=== PATIENT | female | born 1960 | race African-American/Black ===

== ENCOUNTER 2019-05-19 20:40 | Inpatient (IN) | payer MEDICARE ==
[2019-05-19] MEDS ORDERED: methylPREDNISolone Sod Succ/PF 125 MG/2 ML VIAL ONE (21:06)
[2019-05-19 21:13] LABS: #Eosinphils 0.1 thou/uL (0.0-0.7); #Monocytes 0.4 thou/uL (0.11-0.59); #Neutrophils 10.4 thou/uL (1.40-6.50); %Basophils 0.2 % (0.0-1.0); %Eosinophils 0.6 % (0.0-10.0); %Lymphocytes 8.5 % (21.0-51.0); %Monocytes 3.1 % (0.0-10.0); %Neutrophils 87.6 % (42.0-75.0); Hemoglobin 11.6 g/dL (12.0-16.0); Mean Corpuscular HGB CONC 31.9 g/dL (32.0-36.0); Mean Corpuscular Hemoglobin 26.7 pg (27.0-31.0); Mean Corpuscular Volume 83.5 fL (78.0-98.0); Mean Platelet Volume 8.6 fL (7.4-10.4); Platelet Count 170 thou/uL (130-400); RBC Distribution Width 12.3 % (11.5-14.5); Red Blood Cell (RBC) Count 4.34 mill/uL (4.20-5.40); White Blood Cell (WBC) Count 11.9 thou/uL (4.8-10.8)
[2019-05-19 21:36] LABS: ALT (SGPT) 7 U/L (8-55); AST (SGOT) 13 U/L (5-34); Albumin 3.9 g/dL (3.5-5.0); Alkaline Phosphatase 75 U/L (40-150); Anion Gap 16 mmol/L (10-20); BUN (Urea Nitrogen) 8 mg/dL (9.8-20.1); Bilirubin, Total 0.3 mg/dL (0.2-1.2); Calc. Creatinine Clearance 0 mL/min (70-130); Calcium 9.4 mg/dL (7.8-10.44); Carbon Dioxide 21 mmol/L (22-29); Chloride 104 mmol/L (98-107); Estimated GFR-MDRD 59; Globulin 3.8 g/dL (2.4-3.5); Glucose 255 mg/dL (70-105); Potassium 3.8 mmol/L (3.5-5.1); Protein, Total 7.7 g/dL (6.0-8.3); Sodium 137 mmol/L (136-145)
[2019-05-19] MEDS ORDERED: Magnesium 2 GM/50 ML BAG (IN WATER) ONE (21:50)
[2019-05-19] MEDS ORDERED: Loratadine 10 MG TAB PO PRN (21:57)
[2019-05-19] MEDS ORDERED: Sodium Chloride 0.65% Nasal 44 ML BOT EA NARE PRN (21:57)
[2019-05-19] MEDS ORDERED: Senokot S 8.6-50 MG TAB PO PRN ×2 (21:57)
[2019-05-19] MEDS ORDERED: hydrALAZINE 20 MG/ML VIAL SLOW IVP PRN (21:57)
[2019-05-19] MEDS ORDERED: cloNIDine 0.1 MG TAB PO PRN (21:57)
[2019-05-19] MEDS ORDERED: Bisacodyl 5 MG TAB PO PRN ×2 (21:57)
[2019-05-19] MEDS ORDERED: Ondansetron PF 4 MG/2 ML Vial IVP PRN (21:57)
[2019-05-19] MEDS ORDERED: Nitroglycerin 0.4 MG TAB (25 Tab Bottle) SL PRN (21:57)
[2019-05-19] MEDS ORDERED: Acetaminophen 325 MG TAB PO PRN (21:57)
--- NOTE | 2019-05-19 21:57 | RAD ---
FRONTAL RADIOGRAPH CHEST: 05/19/2019 HISTORY: Short of breath. COMPARISON: 05/17/2019 FINDINGS: There is stable atherosclerotic calcification in the aortic arch. Stable heart and mediastinal conto urs. No pneumothorax, pleural fluid, focal consolidation, or alveolar edema. IMPRESSION: No acute findings. POS: OFF
[2019-05-19] MEDS ORDERED: Mometasone/Formoterol 120 PUFF INHALER INH SCH (22:30)
[2019-05-19] MEDS ORDERED: Sodium Chloride 0.9% 1,000 ML IV SCH (22:40)
[2019-05-20] MEDS ORDERED: Potassium Chloride 20 MEQ TAB PO SCH (00:15)
[2019-05-20] MEDS: Benzonatate 100 MG CAP PO PRN ×3 (00:42→21:43)
[2019-05-20] MEDS: Diabetic Tussin 200 MG/10 ML UDCUP PO PRN ×2 (00:42→19:31)
[2019-05-20] MEDS: methylPREDNISolone Sod Succ 40 MG VIAL IVP SCH ×3 (00:42→11:40)
--- NOTE | 2019-05-20 01:15 | HP ---
The patient was seen prior to midnight. PRIMARY CARE PHYSICIAN: [facility] CHIEF COMPLAINT: Shortness of breath. HISTORY OF PRESENTING ILLNESS: Ms. Valerio is a 58-year-old pleasant female with past medical history of DVT, congestive heart failure as per the history, diabetes, asthma versus COPD and chronic lower extremity swelling, who presented to the emergency room with the above-mentioned problems. History is mainly obtained by the patient herself and electronic medical records have been reviewed. Case has been discussed with admitting ER physician, Dr. Mcqueen. Ms. Valerio reports that she has been feeling fine up until the last few days when she has been noticing some shortness of breath easily and wheezing. It got really worse today when she was not able to get any relief despite using her inhalers, nebulizers, and changes in position. She normally gets into the tripod position and gets relief whenever her symptoms are this bad, but today nothing would help except just standing up. She came to the ER 2 days ago with these symptoms and was discharged with steroids. Her symptoms unfortunately got worse this morning and she had to call EMS. Upon presentation of the EMS, she was tripoding and was noticed to have retraction of her pulmonary accessory muscles and she was wheezing. She received nebulizers and was placed on BiPAP and was brought to the ER. She was weaned off BiPAP in the ER and received more nebulizers and magnesium sulfate as well as Lasix. She reports that she takes daily dose of Lasix 40 mg twice a day for her chronic lower extremity swelling. She does not feel that her swelling is any worse in the last few days. She otherwise also reports some chest discomfort and chest tightness, which has since been improved since she presented to the ER. She denies any sick contacts, but has been having some mild cough. Denies any fever or chills. No recent travel either. She is now being admitted to telemetry unit for acute asthma exacerbation. PAST MEDICAL HISTORY: 1. History of bronchial asthma. 2. History of DVT in the past. 3. Anemia. 4. Gastroesophageal reflux disease. 5. Hypertension. 6. Pancreatitis in 2008. PAST SURGICAL HISTORY: 1. Left ankle surgery. 2. section. 3. ERCP. ALLERGIES: NO KNOWN MEDICATION ALLERGIES. SOCIAL HISTORY: No history of drug, tobacco, or alcohol abuse. FAMILY HISTORY: Hypertension, diabetes in her family as well as father had prostate cancer. ALLERGIES: NO KNOWN MEDICATION ALLERGIES. HOME MEDICATIONS: As listed in the ER records, 1. Aspirin unknown dose. 2. Symbicort b.i.d. 3. Potassium chloride 20 mEq daily. 4. Lisinopril 20 mg daily. 5. Flonase 2 puffs b.i.d. 6. Cetirizine daily. 7. Albuterol nebulizer t.i.d. p.r.n. REVIEW OF SYSTEMS: A 14-point review of system is done and is negative except for those mentioned in the history and physical. LABORATORY DATA: CBC shows WBCs 11.9 with 87% neutrophils. Serum chemistry shows BUN 8, creatinine 1.14, blood sugar 255. BNP normal at 14.2. Chest x-ray by my review shows no evidence of pleural effusion, edema, or infiltrate. A 12-lead EKG by my review shows sinus tachycardia without any acute ST or T-wave changes. PHYSICAL EXAMINATION: VITAL SIGNS: Most recent vital signs; heart rate anywhere from 111 to 117, temperature 98.5, respirations anywhere from 20 to 22, saturating 96% on room air, blood pressure 124/64. GENERAL: No acute distress. She is able to talk in full sentences and talks a lot without having to stop her breath, but she gets easily winded. Otherwise, appears to be in good spirits. HEENT: Mucous membrane is moist and pink. No oropharyngeal exudate or erythema. Head is normocephalic and atraumatic. Pupils are equal and reactive to light and accommodation. Extraocular movement intact. NECK: Supple without any lymphadenopathy, JVD, or bruit. CHEST: Evaluation shows decreased breath sounds bilaterally without any audible wheezing, crackles, or rales. She has tachycardic rate, but is regular in rhythm. No audible murmurs. ABDOMEN: Morbidly obese, soft, nontender, nondistended with positive bowel sounds. EXTREMITIES: Show extensive swelling of her left ankle and extending upward, which is chronic for her and suggestive of chronic lymphedema. She has mild pitting edema in the right lower extremity, which also seems to be chronic as per her description. NEUROLOGICAL: Nonfocal. SKIN: Free of any rashes or bruises. Feels warm and dry to touch. PSYCHIATRIC: Normal affect. IMPRESSION AND PLAN: 1. Acute respiratory distress due to acute asthma exacerbation. The patient is neither hypoxic or hypercarbic though ABGs were not done. She is doing much better and has been weaned off BiPAP. She uses CPAP at night, which we will order. We will meanwhile also continue IV steroids and around the clock nebulizers as well as empiric antibiotics. She does not seem to have any evidence of pneumonia or any cardiac causes at this time. There is some question of congestive heart failure listed in her medical records, so we will go ahead and obtain a transthoracic echocardiogram. She will be continued on her Lasix though her chest x-ray does not suggest pulmonary edema. We will consult Pulmonary Medicine in the outpatient settings. Her symptoms are under much better control for now. 2. Type 2 diabetes mellitus. We will use insulin sliding scale with Accu-Cheks before meals and at bedtime. 3. Hypertension. Restart her lisinopril. 4. Chronic lymphedema and chronic venous stasis edema. We will restart her Lasix and potassium chloride for now. 5. Morbid obesity and obstructive sleep apnea. We will start her on CPAP while in the hospital at home setting. 6. Deep venous thrombosis and gastrointestinal prophylaxis. DISPOSITION: Ms. Valerio is currently being admitted to telemetry unit for acute asthma exacerbation causing respiratory distress without hypoxia or hypercapnia. Her symptoms are much improved. Estimated length of stay at this time is at least 2 to 3 midnights. Job ID: [id number]
[2019-05-20 05:26] LABS: #Lymphocytes 0.7 thou/uL (1.20-3.40); #Monocytes 0.1 thou/uL (0.11-0.59); #Neutrophils 8.6 thou/uL (1.40-6.50); %Basophils 0.2 % (0.0-1.0); %Eosinophils 0.3 % (0.0-10.0); %Lymphocytes 7.4 % (21.0-51.0); %Monocytes 1.5 % (0.0-10.0); %Neutrophils 90.6 % (42.0-75.0); Hemoglobin 10.9 g/dL (12.0-16.0); Mean Corpuscular HGB CONC 32.2 g/dL (32.0-36.0); Mean Corpuscular Hemoglobin 27.2 pg (27.0-31.0); Mean Corpuscular Volume 84.4 fL (78.0-98.0); Mean Platelet Volume 8.5 fL (7.4-10.4); Platelet Count 163 thou/uL (130-400); RBC Distribution Width 12.4 % (11.5-14.5); Red Blood Cell (RBC) Count 4.03 mill/uL (4.20-5.40); White Blood Cell (WBC) Count 9.5 thou/uL (4.8-10.8)
[2019-05-20 05:47] LABS: Anion Gap 21 mmol/L (10-20); BUN (Urea Nitrogen) 10 mg/dL (9.8-20.1); Calc. Creatinine Clearance 93 mL/min (70-130); Calcium 9.3 mg/dL (7.8-10.44); Carbon Dioxide 16 mmol/L (22-29); Chloride 103 mmol/L (98-107); Estimated GFR-MDRD 55; Glucose 305 mg/dL (70-105); Potassium 4.7 mmol/L (3.5-5.1); Sodium 135 mmol/L (136-145)
[2019-05-20] MEDS ORDERED: Dextrose 5% in Water 1,000 ML IV PRN (06:56)
[2019-05-20] MEDS ORDERED: Dextrose 50% Abboject 50 ML SYRINGE IVP PRN (06:56)
[2019-05-20] MEDS: Mometasone/Formoterol 120 PUFF INHALER INH SCH ×2 (07:05→19:07)
[2019-05-20 07:20] LABS: Hemoglobin A1c 8.2 % (4.0-6.0)
[2019-05-20] MEDS: Aspirin 81 mg Enteric Coated Tablet PO SCH (08:58)
[2019-05-20] MEDS: Lisinopril 20 MG TAB PO SCH (08:58)
[2019-05-20] MEDS: Famotidine 20 MG TAB PO SCH ×2 (08:58→19:32)
[2019-05-20] MEDS: Enoxaparin Sodium 40 MG/0.4 ML SYRINGE SC SCH (08:58)
[2019-05-20] MEDS: Potassium Chloride 20 MEQ TAB PO SCH (08:58)
[2019-05-20] MEDS: HumaLOG 300 UNITS/3 ML VIAL SC PRN ×3 (08:59→17:12)
[2019-05-20] MEDS ORDERED: Furosemide 40 MG TAB PO SCH ×2 (09:00→16:30)
[2019-05-20] MEDS: Loratadine 10 MG TAB PO SCH (09:03)
[2019-05-20] MEDS: Fluticasone Propionate Nasal Spray 16 gm Bottle NASAL SCH ×2 (09:10→22:21)
[2019-05-20 14:47] VITALS: BMI 52.3
[2019-05-20] MEDS ORDERED: HumaLOG 300 UNITS/3 ML VIAL SC PRN (16:13)
[2019-05-20] MEDS ORDERED: Diabetic Tussin 200 MG/10 ML UDCUP PO PRN (16:17)
[2019-05-20] MEDS ORDERED: Azithromycin 250 MG TAB PO SCH (16:30)
[2019-05-20] MEDS: predniSONE 20 MG TAB PO SCH (16:43)
[2019-05-20] MEDS: metFORMIN 500 MG TAB PO SCH (16:43)
[2019-05-20] MEDS: glipiZIDE 5 MG TAB PO SCH (16:43)
[2019-05-20] MEDS: Cefdinir 300 MG CAP PO SCH (19:31)
[2019-05-20] MEDS: guaiFENesin ER 600 MG TAB PO SCH (19:31)
[2019-05-21] MEDS: Mometasone/Formoterol 120 PUFF INHALER INH SCH (06:35)
[2019-05-21 07:12] LABS: Anion Gap 9 mmol/L (10-20); BUN (Urea Nitrogen) 18 mg/dL (9.8-20.1); Calc. Creatinine Clearance 93 mL/min (70-130); Calcium 9.9 mg/dL (7.8-10.44); Carbon Dioxide 28 mmol/L (22-29); Chloride 103 mmol/L (98-107); Estimated GFR-MDRD 54; Glucose 231 mg/dL (70-105); Magnesium 2.6 mg/dL (1.6-2.6); Potassium 4.2 mmol/L (3.5-5.1); Sodium 136 mmol/L (136-145)
[2019-05-21] MEDS: metFORMIN 500 MG TAB PO SCH (08:28)
[2019-05-21] MEDS: Cefdinir 300 MG CAP PO SCH (08:28)
[2019-05-21] MEDS: glipiZIDE 5 MG TAB PO SCH (08:28)
[2019-05-21] MEDS: Famotidine 20 MG TAB PO SCH (08:28)
[2019-05-21] MEDS: predniSONE 20 MG TAB PO SCH (08:28)
[2019-05-21] MEDS: Aspirin 81 mg Enteric Coated Tablet PO SCH (08:28)
[2019-05-21] MEDS: guaiFENesin ER 600 MG TAB PO SCH (08:29)
[2019-05-21] MEDS: Potassium Chloride 20 MEQ TAB PO SCH (08:29)
[2019-05-21] MEDS: Lisinopril 20 MG TAB PO SCH (08:29)
[2019-05-21] MEDS: Enoxaparin Sodium 40 MG/0.4 ML SYRINGE SC SCH (08:29)
[2019-05-21] MEDS: Loratadine 10 MG TAB PO SCH (08:29)
[2019-05-21] MEDS: HumaLOG 300 UNITS/3 ML VIAL SC PRN (08:30)
[2019-05-21] MEDS: Fluticasone Propionate Nasal Spray 16 gm Bottle NASAL SCH (08:30)
[2019-05-21] MEDS ORDERED: Azithromycin 250 MG TAB PO SCH (09:00)
[2019-05-21] MEDS ORDERED: Furosemide 40 MG TAB PO SCH (09:00)
[2019-05-21] MEDS ORDERED: Saccharomyces boulardii 250 MG CAP PO SCH (09:00)
--- NOTE | 2019-05-21 11:16 | PQF ---
CLINICAL DOCUMENTATION IMPROVEMENT CLARIFICATION FORM: ICD-10 Updated PLEASE DO AN ADDENDUM TO THE PROGRESS NOTE WITH ANY DOCUMENTATION UPDATES OR ADDITIONS AND CARRY THROUGH TO DC SUMMARY. THANK YOU. DATE: 05/21/19 ATTN: DR. FELICIANO Please exercise your independent, professional judgment in responding to the clarification form. Clinical indicators are provided on the bottom of this form for your review Please check appropriate box(s): [ x ] Acute Respiratory Failure: [ x ] with Hypoxia[ ] with Hypercapnia [ ] Acute On Chronic Respiratory Failure: [ ] with Hypoxia [ ] with Hypercapnia [ ] Acute Respiratory Failure due to: (etiology) [ ] ARDS (Acute Respiratory Distress Syndrome) [ ] Chronic Respiratory Failure only [ ] with Hypoxia [ ] with Hypercapnia [ ] Hypoxia [ ] Other diagnosis [ ] Unable to determine In addition, please specify: Present on Admission (POA): [x ] Yes [ ] No [ ] Unable to determine For continuity of documentation, please document condition throughout progress notes and discharge summary. Thank You. CLINICAL INDICATORS - SIGNS / SYMPTOMS / LABS ER NOTE: "WHEN THEY ARRIVED SHE WAS IN TRIPOD POSITION, RETRACTING AND WHEEZING. " "SPEAKING IN SHORT SENTENCES" PULSE 133 RR 24 RISKS: ASTHMA EXACERBATION COPD MORBID OBESITY CHF TREATMENT: NEBS (EMS-PRESENT) BIPAP (EMS) LASIX (05/21) PREDNISONE (05/20-PRESENT) DULERA (05/20-PRESENT) CARDIAC MONITORING SAP [employer](This form is maintained as a part of the permanent medical record) 2014 [employer]. All Rights Reserved ALEJO [email or web address]: [phone] SONYA
[2019-05-21 11:27] VITALS: BP 134/69; TEMP 97.8
--- NOTE | 2019-05-21 12:58 | DIS ---
DATE OF ADMISSION: 05/19/2019 DATE OF DISCHARGE: 05/21/2019 DISCHARGE DISPOSITION: Home. FOLLOWUP: Follow up with primary care physician, Dr. Juan Malloy, in 1 week. ALLERGIES: NO KNOWN DRUG ALLERGIES. DISCHARGE MEDICATIONS: 1. Azithromycin 250 mg daily for next 3 days. 2. Prednisone taper. 3. Pepcid 20 mg twice a day while on prednisone. 4. All other home medications. Home medications were left unchanged. The patient was seen and examined on the day of discharge. Denies any new complaints. No chest pain, shortness of breath, or palpitations reported. BRIEF HOSPITAL COURSE: The patient is a 58-year-old female with asthma with questionable COPD, presented to the emergency room on April,, with shortness of breath and wheezing. She was seen recently in the emergency room and was discharged on steroids. One hour prior to calling the EMS, her symptoms got worse. She was in tripod position, retracting, wheezing. She was placed on noninvasive positive pressure ventilation. She was subsequently brought to the emergency room. There was no fever or chills reported. Her O2 saturation improved when she came into the emergency room after a short treatment with BiPAP. Please refer to the history and physical for further details. The patient was admitted to the hospital with a diagnosis of acute hypoxic respiratory failure secondary to asthma/questionable COPD exacerbation. She was monitored on the telemetry floor due to significant tachycardia. She received nebulization treatment every 4 hours. A chest x-ray was negative for infiltrate. Her symptoms gradually improved. Steroids were later changed to oral. Antibiotics were also changed to p.o. next day. An echocardiogram was performed that showed ejection fraction 55% to 60% with [id number] mitral regurgitation, mild tricuspid regurgitation. She appears stable for discharge. She was advised to contact primary care physician or come to the emergency room if she develops new shortness of breath. SIGNIFICANT LABORATORY DATA: Hemoglobin A1c 8.2. Creatinine 1.22 with BUN 10. FINAL DIAGNOSES: 1. Acute hypoxic respiratory failure secondary to asthma exacerbation/questionable chronic obstructive pulmonary disease exacerbation. 2. Hypertension. 3. Morbid obesity with a BMI of 52.4. 4. Gastroesophageal reflux disease. 5. Chronic anemia. 6. History of deep vein thrombosis in the past. 7. Chronic kidney disease, stage 3. 8. Chronic anemia. 9. Chronic lymphedema. 10. Chronic venous stasis. 11. The patient will follow up with [facility], Dr. Juan Malloy in 1 week. 12. She was also advised to follow up with a primary tree driller at [facility]. 13. Plan was discussed with the patient in detail. She stated understanding. Job ID: [id number]
== END 2019-05-21 12:02 | disposition home or self-care (01) | DRG 189 ==
LOC: ERS 20:40 → 2SW 22:31 → OBSVTOIN 22:31 → 2NO 23:00
PROVIDERS: ADMIT Internal Medicine; ATTEND Internal Medicine
PROC: 5A09357 Assistance with Respiratory Ventilation, Less than 24 Consecutive Hours, Continuous Positive Airway Pressure (ICD-10-PCS; principal; 2019-05-19)
DX: J96.01 Acute respiratory failure with hypoxia (principal); J44.1 Chronic obstructive pulmonary disease with (acute) exacerbation; J45.901 Unspecified asthma with (acute) exacerbation; Z68.43 Body mass index [BMI] 50.0-59.9, adult; I08.1 Rheumatic disorders of both mitral and tricuspid valves; E66.01 Morbid (severe) obesity due to excess calories; K21.9 Gastro-esophageal reflux disease without esophagitis; D63.1 Anemia in chronic kidney disease; I12.9 Hypertensive chronic kidney disease with stage 1 through stage 4 chronic kidney disease, or unspecified chronic kidney disease; N18.3 Chronic kidney disease, stage 3 (moderate); G47.33 Obstructive sleep apnea (adult) (pediatric); I87.8 Other specified disorders of veins; Z79.82 Long term (current) use of aspirin; Z79.51 Long term (current) use of inhaled steroids; Z79.52 Long term (current) use of systemic steroids; Z79.899 Other long term (current) drug therapy; Z86.718 Personal history of other venous thrombosis and embolism
CPT/HCPCS: 36415; 36416; 71045; 80048; 80053; 83036; 83735; 83880; 85025; 90471; 90732; 93005; 93306; 94640; 94660; 96374; 96375; G0009; J1650; J1956; J2405; J2920; J2930; J3475; J7512; J7620

== ENCOUNTER 2020-10-27 14:14 | Emergency (ER) | payer MEDICARE ==
--- NOTE | 2020-10-27 15:55 | ULT ---
Venous duplex sonogram left lower extremity HISTORY: Left leg pain and edema. FINDINGS: The left common femoral vein and greater saphenous junction were evaluated along with the f emoral, deep femoral, popliteal, and posterior tibial vein. There is good color and spectral Doppler flow, compression, and augmentation. IMPRESSION : Normal exam.
== END 2020-10-27 17:18 | disposition home or self-care (01) ==
LOC: ERS 14:14
DX: L03.116 Cellulitis of left lower limb (principal); I50.9 Heart failure, unspecified; E11.9 Type 2 diabetes mellitus without complications; J44.9 Chronic obstructive pulmonary disease, unspecified; Z79.899 Other long term (current) drug therapy
CPT/HCPCS: 36416

== ENCOUNTER 2020-12-24 14:31 | Observation (INO) | payer MEDICARE ==
[2020-12-24] MEDS ORDERED: Ondansetron PF 4 MG/2 ML Vial ONE (15:18)
[2020-12-24] MEDS ORDERED: Piperacillin/Tazobactam 3.375 GM VIAL ONE (15:18)
[2020-12-24] MEDS ORDERED: Morphine 4 MG/ML VIAL ONE (15:18)
[2020-12-24] MEDS ORDERED: Sodium Chloride 0.9% 100 ML ONE (15:18)
[2020-12-24 15:57] LABS: Hemoglobin 11.5 g/dL (12.0-16.0); Mean Corpuscular HGB CONC 32.2 g/dL (32.0-36.0); Mean Corpuscular Hemoglobin 27.4 pg (27.0-31.0); Mean Platelet Volume 7.6 fL (7.4-10.4); Platelet Count 228 thou/uL (130-400); RBC Distribution Width 12.8 % (11.5-14.5); Red Blood Cell (RBC) Count 4.21 mill/uL (4.20-5.40); White Blood Cell (WBC) Count 13.3 thou/uL (4.8-10.8)
[2020-12-24 16:19] LABS: ALT (SGPT) 9 U/L (8-55); AST (SGOT) 13 U/L (5-34); Albumin 3.5 g/dL (3.5-5.0); Alkaline Phosphatase 79 U/L (40-110); Anion Gap 15 mmol/L (10-20); BUN (Urea Nitrogen) 10 mg/dL (9.8-20.1); Bilirubin, Total 0.8 mg/dL (0.2-1.2); Calc. Creatinine Clearance 0 mL/min (70-130); Calcium 9.2 mg/dL (7.8-10.44); Carbon Dioxide 25 mmol/L (22-29); Chloride 102 mmol/L (98-107); Globulin 4.4 g/dL (2.4-3.5); Glucose 81 mg/dL (70-105); Potassium 3.6 mmol/L (3.5-5.1); Protein, Total 7.9 g/dL (6.0-8.3); Sodium 138 mmol/L (136-145)
[2020-12-24 16:26] LABS: Band 7 % (5-11); Eosinophils 2 % (0-10); Lymphocytes 7 % (21-51); MDiff Complete? YES; Monocytes 3 % (0-10); Neutrophil 81 % (42-75); Platelet Morphology Comment Appears Adequate; RBC Morphology Normal
[2020-12-24] MEDS ORDERED: Vancomycin 1 GM/200 ML BAG ONE (16:52)
[2020-12-24] MEDS ORDERED: Guaifenesin DM 100-10/5 ML UDCUP PO PRN (18:34)
[2020-12-24] MEDS ORDERED: Acetaminophen 650 MG Suppository PR PRN (18:34)
[2020-12-24] MEDS ORDERED: Acetaminophen 325 MG TAB PO PRN (18:34)
[2020-12-24] MEDS ORDERED: Ondansetron PF 4 MG/2 ML Vial IVP PRN (18:34)
[2020-12-24] MEDS ORDERED: Ondansetron ODT 4 MG TAB PO PRN (18:34)
[2020-12-24] MEDS ORDERED: Albuterol 200 PUFF (6.7GM INHALER) INH PRN (18:36)
[2020-12-24 18:55] LABS: Lactic Acid 1.9 mmol/L (0.5-2.2)
[2020-12-24] MEDS ORDERED: Dextrose 5% in Water 1,000 ML IV PRN (19:18)
[2020-12-24] MEDS ORDERED: Dextrose 50% Abboject 50 ML SYRINGE SLOW IVP PRN (19:18)
[2020-12-24] MEDS ORDERED: HumaLOG 300 UNITS/3 ML VIAL SC PRN ×2 (19:18)
[2020-12-24] MEDS ORDERED: Furosemide 40 MG TAB PO SCH (22:15)
[2020-12-24] MEDS ORDERED: Potassium Chloride 20 MEQ TAB PO SCH (22:30)
[2020-12-24] MEDS ORDERED: Morphine 2 MG/ML VIAL SLOW IVP SCH (22:30)
[2020-12-24] MEDS: ceFAZolin 1 GM/D5W 1 GM in Premix Bag 1 BAG IVPB SCH (23:25)
[2020-12-25 00:11] VITALS: BMI 51.3
[2020-12-25 02:09] LABS: SARS-CoV-2 PCR by NAA Not Detected (NotDetected)
[2020-12-25] MEDS: ceFAZolin 1 GM/D5W 1 GM in Premix Bag 1 BAG IVPB SCH ×3 (05:32→21:51)
[2020-12-25 05:39] LABS: #Eosinphils 0.5 thou/uL (0.0-0.7); #Lymphocytes 1.2 thou/uL (1.20-3.40); #Monocytes 0.7 thou/uL (0.11-0.59); #Neutrophils 7.9 thou/uL (1.40-6.50); %Basophils 0.2 % (0.0-1.0); %Eosinophils 4.8 % (0.0-10.0); %Lymphocytes 11.8 % (21.0-51.0); %Neutrophils 76.2 % (42.0-75.0); Hemoglobin 10.2 g/dL (12.0-16.0); Mean Corpuscular Hemoglobin 27.3 pg (27.0-31.0); Mean Corpuscular Volume 85.2 fL (78.0-98.0); Mean Platelet Volume 7.5 fL (7.4-10.4); Platelet Count 201 thou/uL (130-400); RBC Distribution Width 12.7 % (11.5-14.5); Red Blood Cell (RBC) Count 3.74 mill/uL (4.20-5.40); White Blood Cell (WBC) Count 10.4 thou/uL (4.8-10.8)
[2020-12-25 05:58] LABS: Lactic Acid 0.9 mmol/L (0.5-2.2)
[2020-12-25 06:00] LABS: Anion Gap 14 mmol/L (10-20); BUN (Urea Nitrogen) 10 mg/dL (9.8-20.1); Calc. Creatinine Clearance 84 mL/min (70-130); Calcium 8.4 mg/dL (7.8-10.44); Carbon Dioxide 23 mmol/L (22-29); Chloride 103 mmol/L (98-107); Glucose 84 mg/dL (70-105); Potassium 4.1 mmol/L (3.5-5.1); Sodium 136 mmol/L (136-145)
[2020-12-25] MEDS ORDERED: Furosemide 40 MG TAB PO SCH (06:00)
[2020-12-25] MEDS: Mometasone 100 MCG/Formoterol 5 MCG 120 PUFF INHALER INH SCH ×2 (06:13→21:12)
[2020-12-25] MEDS: Enoxaparin Sodium 40 MG/0.4 ML SYRINGE SC SCH (08:31)
[2020-12-25] MEDS: metFORMIN 500 MG TAB PO SCH ×2 (08:31→17:44)
[2020-12-25] MEDS ORDERED: Pantoprazole 40 MG VIAL IVP SCH (20:00)
[2020-12-26] MEDS: ceFAZolin 1 GM/D5W 1 GM in Premix Bag 1 BAG IVPB SCH ×2 (05:24→14:32)
[2020-12-26 05:42] LABS: #Eosinphils 0.5 thou/uL (0.0-0.7); #Lymphocytes 1.5 thou/uL (1.20-3.40); #Monocytes 0.6 thou/uL (0.11-0.59); #Neutrophils 6.8 thou/uL (1.40-6.50); %Basophils 0.3 % (0.0-1.0); %Lymphocytes 15.4 % (21.0-51.0); %Monocytes 6.7 % (0.0-10.0); %Neutrophils 72.6 % (42.0-75.0); Hemoglobin 10.4 g/dL (12.0-16.0); Mean Corpuscular HGB CONC 31.8 g/dL (32.0-36.0); Mean Corpuscular Hemoglobin 26.9 pg (27.0-31.0); Mean Corpuscular Volume 84.6 fL (78.0-98.0); Mean Platelet Volume 7.8 fL (7.4-10.4); Platelet Count 221 thou/uL (130-400); RBC Distribution Width 12.4 % (11.5-14.5); Red Blood Cell (RBC) Count 3.87 mill/uL (4.20-5.40); White Blood Cell (WBC) Count 9.4 thou/uL (4.8-10.8)
[2020-12-26 06:06] LABS: Anion Gap 16 mmol/L (10-20); BUN (Urea Nitrogen) 11 mg/dL (9.8-20.1); Calc. Creatinine Clearance 96 mL/min (70-130); Calcium 8.8 mg/dL (7.8-10.44); Carbon Dioxide 23 mmol/L (22-29); Chloride 102 mmol/L (98-107); Glucose 119 mg/dL (70-105); Potassium 3.9 mmol/L (3.5-5.1); Sodium 137 mmol/L (136-145)
[2020-12-26] MEDS: Mometasone 100 MCG/Formoterol 5 MCG 120 PUFF INHALER INH SCH (07:36)
[2020-12-26] MEDS: Enoxaparin Sodium 40 MG/0.4 ML SYRINGE SC SCH (08:55)
[2020-12-26] MEDS: metFORMIN 500 MG TAB PO SCH ×2 (08:55→16:31)
[2020-12-26 14:56] VITALS: BP 124/75; TEMP 98.4
== END 2020-12-26 17:13 | disposition home or self-care (01) ==
LOC: ERS 14:31 → INTOOBSV 17:00 → T4-A 17:00
PROVIDERS: ADMIT Internal Medicine; ATTEND Internal Medicine
DX: A41.9 Sepsis, unspecified organism (principal); L03.116 Cellulitis of left lower limb; I13.0 Hypertensive heart and chronic kidney disease with heart failure and stage 1 through stage 4 chronic kidney disease, or unspecified chronic kidney disease; E11.22 Type 2 diabetes mellitus with diabetic chronic kidney disease; N18.30 Chronic kidney disease, stage 3 unspecified; I50.32 Chronic diastolic (congestive) heart failure; I87.8 Other specified disorders of veins; I89.0 Lymphedema, not elsewhere classified; J44.9 Chronic obstructive pulmonary disease, unspecified; M19.90 Unspecified osteoarthritis, unspecified site; K21.9 Gastro-esophageal reflux disease without esophagitis; E66.01 Morbid (severe) obesity due to excess calories; Z68.43 Body mass index [BMI] 50.0-59.9, adult; Z86.718 Personal history of other venous thrombosis and embolism; Z79.82 Long term (current) use of aspirin; Z79.84 Long term (current) use of oral hypoglycemic drugs; Z79.899 Other long term (current) drug therapy; Z20.822 Contact with and (suspected) exposure to COVID-19
CPT/HCPCS: 71045; 80048 ×2; 80053; 82962 ×3; 83605 ×2; 83880; 85025 ×3; 85379; 87040; 93970; 94640 ×4; 94664; 96365; 96366; 96367; 96375; 99284; J2270; U0003; U0005; 36415; 36416; 87635; C9113; J0690; J1650; J2405; J2543; J3370; J3490; J7620